=== PATIENT | male | born 1990 | race Two or more races ===

== ENCOUNTER 2020-02-24 07:32 | Emergency (ER) | payer MEDICAID ==
[~2020-02-24] VITALS: Ht 180.3 cm; Wt 106.6 kg
[2020-02-24 07:43] VITALS: BP 127/78
[2020-02-24] MEDS ORDERED: cefTRIAXone SOD 1,000 MG VL IM ONE (10:00)
[2020-02-24] MEDS ORDERED: LIDOCAINE 1% HCL (LOCAL ANESTH.) INJ 20ML MDV ONE (10:02)
== END 2020-02-24 10:40 | disposition home or self-care (01) ==
LOC: ER 07:32
DX: J18.9 Pneumonia, unspecified organism (principal)
CPT/HCPCS: 71045; 96372; 99283; J0696; J2001